=== PATIENT | female | born 1955 | race Caucasian/White ===

== ENCOUNTER → 2025-01-22 12:53 | Outpatient (REF) | payer MEDICARE, OTHER, SELFPAY ==
[2025-01-22 14:16] LABS: % Basophils 0.4 % (0-2); % Eosinophils 1.4 % (0-6); % Immature Granulocytes 0.1 % (0-0.5); % Lymphocytes 35.9 % (20.5-51.1); % Monocytes 7.4 % (1.7-9.3); % Neutrophils 54.8 % (42.2-75.2); Absolute Eosinophils 0.1 10^3/uL (0-0.7); Absolute Lymphocytes 2.8 10^3/uL (1.2-3.4); Absolute Monocytes 0.6 10^3/uL (0.1-0.6); Absolute Neutrophils 4.2 10^3/uL (1.4-6.5); Hematocrit 41.8 % (37.0-47.0); Hemoglobin 13.8 g/dL (12.0-16.0); Mean Corpuscular Hgb 28.2 pg (27.0-31.0); Mean Corpuscular Volume 85.5 fL (81.0-99.0); Mean Platelet Volume 9.4 fL (7.4-10.4); Nucleated Red Blood Cells % 0 %; Platelet Count 304 10^3/uL (130-400); Red Blood Cell Count 4.89 10^6/uL (4.20-5.40); Red Cell Dist. Width 13.4 % (11.5-14.5); White Blood Cell Count 7.7 10^3/uL (4.8-10.8)
[2025-01-22 15:08] LABS: ALT (SGPT) 19 U/L (0-35); AST (SGOT) 23 U/L (14-36); Albumin 4.4 g/dl (3.5-5.0); Alkaline Phosphatase 65 U/L (38-126); Blood Urea Nitrogen 11 mg/dl (7-17); Calcium 10.1 mg/dl (8.4-10.2); Carbon Dioxide 36 mmol/L (22-30); Chloride 96 mmol/L (98-107); Glucose 51 mg/dl (70-99); Potassium 3.9 mmol/L (3.5-5.1); Sodium 139 mmol/L (135-145); Total Bilirubin 0.5 mg/dl (0.2-1.3); Total Protein 7.1 g/dl (6.3-8.2); eGFR > 60.00
== END ==
LOC: SDSPAT 12:53
PROVIDERS: ATTENDING PHYSICIAN Internal Medicine Cardiovascular Disease; FAMILY PHYSICIAN Family Medicine; OTHER PHYSICIAN Internal Medicine Cardiovascular Disease
DX: I25.10 Atherosclerotic heart disease of native coronary artery without angina pectoris (principal); E11.9 Type 2 diabetes mellitus without complications; I73.9 Peripheral vascular disease, unspecified
CPT/HCPCS: 36415; 80053; 85025; 93005

== ENCOUNTER 2025-01-28 06:11 | Day surgery (SDC) | payer MEDICARE, OTHER, SELFPAY ==
[2025-01-22 12:56] VITALS: BMI 26.8
[2025-01-28] VITALS (10 sets, daily range): BP systolic 107–153; BP diastolic 63–81
[2025-01-28 07:16] LABS: Glucose - Point of Care 139 mg/dl (70-99)
[2025-01-28] MEDS: NSS 193 ML IV (07:22)
--- NOTE | 2025-01-28 09:23 | ITS.CL.CATH ---
Caustic Room Attendant - Catheterization
Cardiac Catheterization
Procedure Report:
CARDIAC CATHETERIZATION REPORT
Date of Procedure: 01/28/2025
Referring: Erica Ferrell M.D.
INDICATION: Known coronary artery disease, abnormal stress test after abnormal EKG.
PROCEDURE:
1. Right brachial artery angiography.
2. Left heart catheterization.
3. Coronary angiography.
4. Left ventriculography.
A total of 19 minutes of procedural/moderate sedation was utilized. An independent medical oncologist was present to assist with and help manage the patient's level of consciousness and physiologic status.
ACCESS:
1. 6 Georgian right radial artery using a modified Seldinger technique. Of note, we had difficulty advancing catheters through the right brachial artery. Angiography revealed an 80% stenosis in the mid brachial artery. We were able to traverse
this lesion with a Glidewire and complete the case. Pullback across the lesion revealed a 32 mm peak to peak gradient.
CATHETERS:
1. 5 Georgian JR4.
2. 5 Georgian JL 3.5.
3. 5 Georgian angled pigtail.
4. 5 Georgian multipurpose catheter.
HEMODYNAMIC DATA
Weight (kg): 64.4
AO (s/d/x, mmHg): 174/91/127
LV (s/x mmHg): 174/20
LEFT VENTRICULOGRAPHY: Performed in an ARBOLEDA projection. Normal left ventricular size and preserved systolic function. There is, perhaps, very mild hypokinesis of the apical inferior and apical anterior lr. Left ventricular ejection fraction
estimated at 55-60%. There is no mitral valve regurgitation. There is no aortic valve insufficiency. The aortic root and visualized ascending and descending aorta appear normal with no evidence of residual dissection.
CORONARY ANGIOGRAPHY
Dominance: Right.
Left Main: Normal size, bifurcating vessel. There is no coronary artery disease.
LAD: Normal size vessel giving rise to 2 significant diagonals. There is a 60% lesion in the proximal LAD that spans the origin of the first diagonal. There is a stent present in the mid LAD spanning the origin of the second diagonal. There is
approximately 90% in-stent restenosis in the distal half of the stented segment. There is a 70% lesion in the proximal margin of the large first diagonal which supplies a significant portion of the lateral wall.
Ramus: Congenitally absent.
Circumflex: Large size, nondominant vessel giving rise to 2 obtuse marginals then terminating as a large left posterolateral branch. There is a 60% lesion in the ostium of the circumflex. There is a 70+% lesion in the proximal circumflex
spanning the origin of the first obtuse marginal. There is a 70% lesion in the proximal margin of OM1.
RCA: Normal size, dominant vessel. There is a 90% lesion in the proximal vessel. The vessel is chronically totally occluded in its midsection. The distal vessel is diffusely diseased through the proximal RPDA. The mid and distal RPDA supplied
by collaterals from the LAD.
INTERVENTION(S)
None.
Closure Device: Vascular band.
Radiation (mGy): 311.0
DAP (cm2.Gy): 13.310
Fluoroscopy time (minutes): 5.0
CONCLUSIONS
1. Right dominant circulation with diffuse, multivessel coronary disease including a 90% proximal RCA lesion, a chronic total occlusion of the mid RCA that persists through the distal RCA with reconstitution elicitation of the mid RPDA that is
supplied by collaterals from the LAD, a 60% proximal LAD lesion spanning the origin of the first diagonal, and 90% ISR lesion in the distal half of the mid LAD stent, a 70% lesion in the proximal margin of the first diagonal which supplies a
significant portion of the lateral wall, a 60% lesion in the ostium of the circumflex, a 70% lesion in the proximal circumflex spanning the origin of the first obtuse marginal and a 70% lesion in the proximal margin of OM1.
2. Moderately elevated filling pressures (LVEDP = 20 mmHg at 64.4 kg).
3. Moderate to severe systemic hypertension.
4. 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
5. Impaired anginal warning.
RECOMMENDATIONS:
1. Expectant management after cardiac catheterization via right radial approach.
2. Limited weight bearing on the right wrist for one week.
3. Consultation with CT surgery regarding optimal revascularization strategy.
4. Continue aggressive secondary prevention with pravastatin 10 mg daily (intolerant of higher dose statins). Agree with initiation of inclisiran.
5. Discontinue hydrochlorothiazide in favor of furosemide 20 mg daily.
6. Continue OMT/GDMT as hemodynamics will tolerate.
7. Update echocardiogram.
Copy to: Erica Ferrell M.D., Diana Mei M.D., PhD
Wilner See DO, FACC, FACP
[2025-01-28 09:47] LABS: Glucose - Point of Care 92 mg/dl (70-99)
== END 2025-01-28 12:00 | disposition home or self-care (01) ==
LOC: CATH 06:11
PROVIDERS: ATTENDING PHYSICIAN Internal Medicine Cardiovascular Disease; CONSULT PHYSICIAN Thoracic Surgery (Cardiothoracic Vascular Surgery); FAMILY PHYSICIAN Family Medicine; OTHER PHYSICIAN Internal Medicine Cardiovascular Disease
DX: I25.119 Atherosclerotic heart disease of native coronary artery with unspecified angina pectoris (principal); I25.82 Chronic total occlusion of coronary artery; Z95.5 Presence of coronary angioplasty implant and graft; I10 Essential (primary) hypertension; E78.5 Hyperlipidemia, unspecified; E03.9 Hypothyroidism, unspecified; E11.9 Type 2 diabetes mellitus without complications; K21.9 Gastro-esophageal reflux disease without esophagitis; Z87.891 Personal history of nicotine dependence; Z79.82 Long term (current) use of aspirin; Z79.84 Long term (current) use of oral hypoglycemic drugs; Z79.85 Long-term (current) use of injectable non-insulin antidiabetic drugs; Z79.01 Long term (current) use of anticoagulants
CPT/HCPCS: 99152; C1894; C1769; 82962; 93458

== ENCOUNTER → 2025-02-19 08:00 | Outpatient (REF) | payer MEDICARE, OTHER, SELFPAY ==
[2025-02-19 08:50] VITALS: BMI 27.8
[2025-02-19 09:20] LABS: % Basophils 0.6 % (0-2); % Eosinophils 1.5 % (0-6); % Immature Granulocytes 0.6 % (0-0.5); % Lymphocytes 20.9 % (20.5-51.1); % Monocytes 6.4 % (1.7-9.3); Absolute Basophils 0.1 10^3/uL (0-0.2); Absolute Eosinophils 0.1 10^3/uL (0-0.7); Absolute Immature Granulocytes 0.1 10^3/uL (0-0.05); Absolute Lymphocytes 1.8 10^3/uL (1.2-3.4); Absolute Monocytes 0.5 10^3/uL (0.1-0.6); Absolute Neutrophils 5.9 10^3/uL (1.4-6.5); Hematocrit 42.5 % (37.0-47.0); Mean Corp Hgb Conc. 32.9 g/dL (33.0-37.0); Mean Corpuscular Hgb 28.5 pg (27.0-31.0); Mean Corpuscular Volume 86.4 fL (81.0-99.0); Mean Platelet Volume 9.4 fL (7.4-10.4); Nucleated Red Blood Cells % 0 %; Platelet Count 266 10^3/uL (130-400); Red Blood Cell Count 4.92 10^6/uL (4.20-5.40); Red Cell Dist. Width 13.7 % (11.5-14.5); White Blood Cell Count 8.4 10^3/uL (4.8-10.8)
[2025-02-19 09:44] LABS: INR 0.97; PT 13.3 Sec (11.4-14.6)
[2025-02-19 09:45] LABS: APTT 26.2 Sec (23.4-35.0)
--- NOTE | 2025-02-19 09:47 | CM ---
Chart reviewed. Met with the patient in PAT. Reviewed preoperative and postoperative instructions and restrictions, along with showering guidelines. Gave patient 2 soaps. Patient is agreeable to a home visit by CT Transitional RN. Patient is
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 Patient said she will have friends to help assist when she goes home. Plan is for the
patient to return home with CT Transitional RN. CM to follow
[2025-02-19 09:49] LABS: ALT (SGPT) 21 U/L (0-35); AST (SGOT) 25 U/L (14-36); Albumin 4.8 g/dl (3.5-5.0); Alkaline Phosphatase 68 U/L (38-126); Blood Urea Nitrogen 11 mg/dl (7-17); Calcium 9.8 mg/dl (8.4-10.2); Carbon Dioxide 28 mmol/L (22-30); Chloride 99 mmol/L (98-107); Direct Bilirubin 0.2 mg/dl (0.0-0.4); Estimated Creatinine Clearance 75 ml/min; Glucose 121 mg/dl (70-99); Potassium 4.7 mmol/L (3.5-5.1); Sodium 140 mmol/L (135-145); Total Bilirubin 0.5 mg/dl (0.2-1.3); Total Protein 7.3 g/dl (6.3-8.2); eGFR > 60.00
[2025-02-19 10:23] LABS: Urine Albumin Negative (Neg - Trace); Urine Bilirubin Negative (Negative); Urine Character Clear (Clear); Urine Color Yellow; Urine Glucose Negative (Negative); Urine Ketone Negative (Negative); Urine Leukocyte 2+ (Negative); Urine Nitrite Negative (Negative); Urine Occult Blood Negative (Negative); Urine Urobilinogen Negative (Neg - 1+); Urine pH 6.5 (5.0-9.0)
[2025-02-19 10:54] LABS: Glycohemoglobin (HgbA1c) 6.7 % (4.0-5.6)
[2025-02-19 11:30] LABS: Urine Amorphous Seen
[2025-02-19 11:32] LABS: Urine Red Blood Cell 0-2 /HPF (0-2)
== END ==
LOC: SDSPAT 08:00
PROVIDERS: ATTENDING PHYSICIAN Thoracic Surgery (Cardiothoracic Vascular Surgery); FAMILY PHYSICIAN Family Medicine; OTHER PHYSICIAN Internal Medicine Cardiovascular Disease
DX: Z01.810 Encounter for preprocedural cardiovascular examination (principal); I25.10 Atherosclerotic heart disease of native coronary artery without angina pectoris; Z79.899 Other long term (current) drug therapy; I73.9 Peripheral vascular disease, unspecified; I65.21 Occlusion and stenosis of right carotid artery; I77.1 Stricture of artery
CPT/HCPCS: 94727; 94729; 36415; 71250; 80053; 81003; 81015; 82248; 83036; 85025; 85610; 85730; 86850; 86900; 86901; 87070; 87086; 93005; 93880; 93923; 93930; 93970; 94010

== ENCOUNTER → 2025-02-23 07:01 | Outpatient (REF) | payer MEDICARE, OTHER, SELFPAY | LOC: HWRCS 07:01 | PROVIDERS: ATTENDING PHYSICIAN Thoracic Surgery (Cardiothoracic Vascular Surgery); FAMILY PHYSICIAN Family Medicine | DX: I25.10 Atherosclerotic heart disease of native coronary artery without angina pectoris (principal); Z01.810 Encounter for preprocedural cardiovascular examination | CPT/HCPCS: 93306 ==

== ENCOUNTER 2025-03-02 07:45 | Day surgery (SDC) | payer MEDICARE, OTHER, SELFPAY ==
[2025-03-02] VITALS (15 sets, daily range): BP systolic 113–152; BP diastolic 59–82; BMI 27.7
[2025-03-02 08:34] LABS: Glucose - Point of Care 130 mg/dl (70-99)
[2025-03-02] MEDS: NSS 193 ML IV (08:41)
[2025-03-02] MEDS: LOW STRENGTH ASPIRIN 81 MG PO (09:03)
[2025-03-02 11:23] LABS: ACT-LR - POC 276 Seconds (116-155)
[2025-03-02 12:12] LABS: ACT-LR - POC 376 Seconds (116-155)
[2025-03-02 12:34] LABS: ACT-LR - POC > 397 Seconds (116-155)
[2025-03-02 12:34] LABS: ACT-LR - POC > 397 Seconds (116-155)
--- NOTE | 2025-03-02 12:50 | ITS.CL.ANGIO ---
Switchboard Operator Helper - Angioplasty
Angioplasty
Procedure Report:
CARDIAC CATHETERIZATION REPORT
Date of Procedure: 03/02/2025
Referring: Nima Vieyra M.D.
INDICATION: Multivessel coronary artery disease, no viable surgical conduit.
PROCEDURE:
1. Left-sided coronary angiography.
2. Successful PCI of the proximal OM1, mid circumflex and proximal circumflex using a DK crush technique.
3. Intravascular ultrasound.
A total of 117 minutes of procedural/moderate sedation was utilized. An independent medical grade shoemaker was present to assist with and help manage the patient's level of consciousness and physiologic status.
ACCESS:
1. 7 Senegalese slender right radial artery using a modified Seldinger technique.
CATHETERS:
1. 7 Senegalese EBU 3.5 guiding catheter.
HEMODYNAMIC DATA
Weight (kg): 64.4
AO (s/d/x, mmHg): 151/71/99
LV (s/x mmHg): Not obtained.
LEFT VENTRICULOGRAPHY: Not performed.
CORONARY ANGIOGRAPHY
Dominance: Right.
Left Main: Normal size, bifurcating vessel. There is no coronary artery disease.
LAD: Normal size vessel giving rise to 2 significant diagonals. There is a 60% lesion in the proximal LAD that spans the origin of the first diagonal. There is a stent present in the mid LAD spanning the origin of the second diagonal. There is
approximately 90% in-stent restenosis in the distal half of the stented segment. There is a 70% lesion in the proximal margin of the large first diagonal which supplies a significant portion of the lateral wall.
Ramus: Congenitally absent.
Circumflex: Large size, nondominant vessel giving rise to 2 obtuse marginals then terminating as a large left posterolateral branch. There is a Oneil 1, 1, 1 lesion in the proximal/mid circumflex and OM1 (70% lesion in the ostium of the
circumflex, an 80% lesion in the mid circumflex spanning the origin of the first obtuse marginal and a 70% lesion in the proximal margin of OM1).
RCA: Not injected. Known to be a normal size, dominant vessel with a 90% lesion in his proximal margin and chronic total occlusion of its midsection supplied by collaterals from the LAD.
INTERVENTION(S)
1. Successful PCI of the Oneil 1, 1, 1 circumflex/OM lesion using a DK crush technique ([employer] [place] 2.0 x 22 VIOLA into the OM1, 3.0 x 38 VIOLA in the proximal and mid circumflex, status post simultaneous kissing balloon and POT) with
reduction in all circumflex stenoses to 0%, maintaining ZEINA-3 flow.
2. Intravascular ultrasound of the left circumflex artery.
Narrative:
After thorough and thoughtful discussion with CT surgery and review of the fact that the patient has multivessel coronary disease with no usable conduit, the decision was made to proceed with percutaneous coronary intervention. A 7Fr EBU 3.5 guiding
catheter was advanced to the aortic root and seated in the left main coronary artery. Additional heparin was given and a Power Turn Flex wire was advanced into the distal aspect of obtuse marginal 1. A BMW wire was advanced into the left
posterolateral branch. The 70% proximal OM1 lesion was predilated with a 2.0 x 12 semi-compliant balloon to 12 omayra. This semicompliant balloon was used to predilate the entire proximal circumflex artery to 12 omayra. The semicompliant balloon was
withdrawn from the power turn Flex wire and readvanced over the BMW wire. Angioplasty was performed on the mid circumflex and again in the proximal circumflex to 12 omayra.
The semicompliant balloon was withdrawn and a 2.5 x 12 semicompliant balloon was advanced and parked in the more distal circumflex, beyond the origin of OM1. A Medtronic [place] [facility] 2.0 x 22 drug-eluting stent was advanced over the power turn
flex wire and into the first obtuse marginal. Meticulous care was taken while positioning the stent, ensuring that the distal aspect of the stent covered the entire proximal lesion while the proximal aspect of the stent protruded into the left
circumflex far enough for instrumentation. When we were satisfied with our position, the stent was deployed to 12 omayra. The stent balloon was withdrawn. The 2.5 x 12 semicompliant balloon was pulled back and the circumflex portion of the stent was
crushed by inflation of this balloon.
A whisper wire was advanced through the guide and into the left circumflex artery. The whisper wire was able to traverse the crushed stent struts and entered the first obtuse marginal artery. A 1.5 x 6 mm semicompliant balloon was advanced over
the whisper wire and into the OM1. The balloon was positioned at the ostium of OM1 and the crushed stent struts were dilated to 12 omayra. The semicompliant balloon was removed and then the 2.0 x 12 semicompliant balloon was advanced. Once again,
the ostium of OM1 was dilated to 12 omayra. At this time, the power turn Flex wire was removed from the obtuse marginal and thus from in between the crush to stent segments. The semicompliant balloon was withdrawn and a 2.0 x 12 noncompliant balloon
was advanced. The entire OM stented segment was postdilated to 12 omayra, including across the stent struts and into the left circumflex. The 2.5 x 12 semicompliant circumflex balloon was pulled back and a simultaneous kissing inflation of the
balloons was performed to 12 omayra. Both balloons were withdrawn.
The decision was made to perform intracoronary imaging. An IVUS catheter was advanced through the guiding catheter and into the ostium of the artery. Ring down was performed once the imaging crystal was no longer inside of the guiding catheter. The
IVUS catheter was advanced into the proximal left main, but would not pass beyond the lip of the crushed OM stent. The IVUS catheter was withdrawn. The power turn flex wire was readvanced into the LAD to serve as a marker and as protection.
A Medtronic [place] [facility] 3.0 x 38 drug-eluting stent was advanced. Meticulous care was taken while positioning the stent, ensuring that the distal aspect of the stent cover the entirety of the atherosclerotic portion while ensuring that the
proximal margin of the stent did not intrude into the left main coronary artery while also completely treating the proximal circumflex lesion. When we were satisfied with our position, the whisper wire was removed from the obtuse marginal to avoid
pinning and the stent was deployed at 12 atmospheres. The stent balloon was removed. A 3.0 x 15 noncompliant balloon was advanced into the circumflex stent and the stent was postdilated to 15 atmospheres.
The whisper wire was readvanced into the circumflex with a view to reaccessing and post dilating the stent struts leading into the first obtuse marginal. Unfortunately, the whisper wire would not enter the obtuse marginal artery. The whisper was
withdrawn and a Fielder XT was advanced. The Fielder XT had improved success entering the obtuse marginal but required microcatheter support. The power turn flex was withdrawn from the LAD as it no longer needed protection. The quick cross
microcatheter was removed over the Fielder XT and a 1.2 x 8 [id number] balloon was advanced over the Fielder XT. Unfortunately, this balloon would not enter the obtuse marginal, even when supported by a 6 Senegalese GuideLiner. In spite of multiple
attempts, access was ultimately lost on the obtuse marginal, at which time the Fielder XT and the [id number]-[id number]-acti balloon were removed.
IVUS was reattempted over the BMW wire, this time passing into the distal circumflex with relative ease. IVUS was performed in a retrograde fashion demonstrating good stent apposition throughout the entire stented segment with underexpansion of the
stent near the bifurcation with OM1. The IVUS catheter was withdrawn and a 3.25 x 12 noncompliant balloon was advanced. The distal circumflex stent was dilated to 16 omayra. The remainder of the stented segment, including the section spanning the
origin of OM1 and the proximal margin was postdilated to 20 omayra. The noncompliant balloon was withdrawn and IVUS was repeated, showing a dramatic improvement in the underexpanded circumflex stent segment.
The IVUS catheter was withdrawn. At this point, we felt that the procedure may be had an and given our previous inability to advance equipment through the stent struts and into OM1. While pulling the BMW wire back, I did decide to reattempt
entering the OM1, which was now accomplished using the BMW wire with relative ease. The 1.5 x 6 semicompliant balloon was advanced over the BMW wire and the circumflex stent struts covering the obtuse marginal were predilated to 16 omayra. The 1.5
balloon was removed and the original 2.0 x 12 semicompliant balloon was advanced. The stent struts and ostial OM1 were dilated to 12 omayra. The semicompliant balloon was removed and the power turn flex was readvanced into the distal circumflex. A
fresh 2.0 x 8 noncompliant balloon was advanced over the BMW wire and into the first obtuse marginal. The 3.25 x 12 noncompliant balloon was advanced over the power turn flex and into the AV groove circumflex. The proximal OM stent was dilated to
14 omayra. The balloon was pulled back, spanning the origin of the OM and dilated again to 14 omayra. The 3.25 NC balloon was pulled back until it was even with the OM1 balloon. The 3.25 x 12 NC balloon was inflated to 12 omayra. At that time, both
balloons were simultaneously inflated to 14 omayra and a simultaneous kissing balloon technique. Both balloons were deflated and withdrawn. IVUS was initially reattempted, but had difficulty traversing the turn within the stent. Given the favorable
angiographic status, we elected to defer further IVUS due to fear of disruption of the neocarina.
Angiography was performed in orthogonal views, confirming good stent expansion and an excellent angiographic result. The coronary wires were withdrawn and the guide was disengaged from the artery. The catheter was removed over a standard J-wire.
Closure Device: Vascular band.
Radiation (mGy): 1036.39
DAP (cm2.Gy): 51.4887
Fluoroscopy time (minutes): 37.8
CONCLUSIONS
1. Right dominant circulation with a chronic total occlusion of the RCA with, 60% lesion in the proximal LAD spanning the origin of the first diagonal, a stent in the mid LAD with 90% in-stent restenosis, a 70% lesion in the proximal margin of D1
and a complex, Oneil 1, 1, 1 lesion of the proximal/mid circumflex and OM1 (70% lesion in the ostium of the circumflex, an 80% lesion in the mid circumflex spanning the origin of the first obtuse marginal and a 70% lesion in the proximal margin of
OM1) status post successful IVUS guided PCI using a DK crush technique (Medtronic [place] 2.0 x 22 VIOLA into OM1, 3.0 x 38 VIOLA in the proximal and mid circumflex status post simultaneous kissing balloon with a 2.0 NC balloon in OM1 and a 3.25
NC balloon in the proximal/mid circumflex and POT) with reduction in the circumflex/OM stenoses to 0%, maintaining ZEINA-3 flow.
RECOMMENDATIONS:
1. Expectant management after cardiac catheterization via right radial approach.
2. Limited weight bearing on the right wrist for one week.
3. Combination antiplatelet therapy with aspirin, clopidogrel and low-dose rivaroxaban for at least 12 months.
4. Anticipate staged PCI of the LAD in the next 2 to 3 weeks.
5. Aggressive secondary prevention with maximum tolerated antilipid therapy. Goal LDL <55.
6. Continue GLP-1 agonist.
7. OMT/GDMT as hemodynamics will tolerate.
8. Refer to cardiac rehab.
Copy to: Nima Vieyra M.D., Erica Ferrell M.D.
Wilner See DO, FACC, FACP
[2025-03-02 13:05] LABS: ACT-LR - POC 313 Seconds (116-155)
[2025-03-02 13:12] LABS: Glucose - Point of Care 79 mg/dl (70-99)
--- NOTE | 2025-03-02 16:03 | PTCARENOTE ---
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 Tele- SR. R radial band off and gauze and Tegaderm applied; c/d/i. No bleeding/hematoma noted. Oriented pt to room. VSS. Plan of care reviewed w/ pt and verbalizes understanding. Currently OOB in chair; call marlene w/in reach.
[2025-03-02 17:30] LABS: Glucose - Point of Care 154 mg/dl (70-99)
[2025-03-02] MEDS: PRAVACHOL 10 MG PO (17:47)
[2025-03-02] MEDS: AMARYL 4 MG PO (17:47)
[2025-03-02] MEDS: NOVOLOG FLEXPEN-MODERATE RESISTANCE 1 UNITS SC (18:07)
[2025-03-02] MEDS: LOPRESSOR 50 MG PO (20:38)
[2025-03-02] MEDS: XARELTO 2.5 MG PO (20:38)
[2025-03-02] MEDS: TYLENOL 650 MG PO (20:39)
[2025-03-02] MEDS: ASPIR LOW (ENTERIC COATED) 81 MG PO (21:44)
[2025-03-02 21:47] LABS: Glucose - Point of Care 107 mg/dl (70-99)
--- NOTE | 2025-03-02 22:14 | PTCARENOTE ---
Rec'd at change of shift. SR on monitor. Pt with R radial site CDI. Pt resting with call rosario in reach and plan of care ongoing. See MAR and flowchart for full pt care and assessment.
[2025-03-03 02:53] VITALS: BP 120/54
[2025-03-03 02:54] VITALS: BP 120/54
[2025-03-03 03:11] VITALS: BMI 27.8
[2025-03-03 03:41] LABS: Hematocrit 36.4 % (37.0-47.0); Hemoglobin 12.5 g/dL (12.0-16.0); Mean Corp Hgb Conc. 34.3 g/dL (33.0-37.0); Mean Corpuscular Hgb 29.5 pg (27.0-31.0); Mean Corpuscular Volume 85.8 fL (81.0-99.0); Mean Platelet Volume 9.4 fL (7.4-10.4); Platelet Count 206 10^3/uL (130-400); Red Blood Cell Count 4.24 10^6/uL (4.20-5.40); Red Cell Dist. Width 13.4 % (11.5-14.5); White Blood Cell Count 8.3 10^3/uL (4.8-10.8)
[2025-03-03 03:59] LABS: Blood Urea Nitrogen 11 mg/dl (7-17); Calcium 9.1 mg/dl (8.4-10.2); Carbon Dioxide 27 mmol/L (22-30); Chloride 105 mmol/L (98-107); Estimated Creatinine Clearance 75 ml/min; Glucose 118 mg/dl (70-99); HDL Cholesterol 47 mg/dl; LDL Cholesterol, Calculated 74 mg/dl; Potassium 4.1 mmol/L (3.5-5.1); Sodium 140 mmol/L (135-145); Total Cholesterol 157 mg/dl (50-199); Triglyceride 180 mg/dl (10-149); Very Low Density Lipoprotein 36 mg/dl (0-30); eGFR > 60.00
[2025-03-03 04:47] LABS: Hepatitis C Antibody Negative (Negative)
[2025-03-03] MEDS: SYNTHROID 100 MCG PO (05:47)
[2025-03-03 07:06] VITALS: BP 96/62
[2025-03-03 07:15] LABS: Glucose - Point of Care 147 mg/dl (70-99)
--- NOTE | 2025-03-03 07:57 | W.PN.CD ---
Today's Communication / Plan
-
Discharge.
Staged PCI of the LAD in 2-3 weeks.
Maintain aspirin/clopidogrel/rivaroxaban.
Impression / Plan
-
Impression/Plan: 69 y/o female with HTN, HLD, relative statin intolerance, PAD requiring RLE bypass and CAD with impaired anginal warning initially referred for CABG after cath showed LAD ISR, RCA ASSEMBLER CAMPER and LCx disease, but redirected to multivessel
PCI after US evaluation showed she has no usable bypass conduit, now admitted for observation after staged PCI of the LCx/OM1.
#CAD
-Chronic, progressive.
-Cardiac catheterization from 01/28/2025 show mRCA ASSEMBLER CAMPER, 60% pLAD, 90% mLAD ISR, 70% pD1, 60+% pLCx, 70-80% mLCx spanning OM1 and 70% pOM1.
-Patient was initially referred for CABG, but evaluation showed that there was no usable conduit for bypass, including questionable SAMSON. She was subsequently re-referred for PCI.
-S/P successful IVUS guided PCI of the Oneil 1,1,1 pLCx/mLCx/OM1 lesion using a DK crush technique (Medtronic [place] 2.0 x 22 VIOLA from LCx into OM1, 3.0 x 38 VIOLA in pLCx/mLCx main vessel with simultaneous kissing balloons (2.0 x 8 NCB and 3.25 x 12
NCB).
-Antithrombotic therapy with aspirin, clopidogrel and low dose rivaroxaban.
-Plan for staged PCI of the LAD in 2-3 weeks.
#Right hand ecchymosis
-Acute, asymptomatic.
-Likely from combination of antithrombotic medications and pressure on hand during procedure.
-Conservative management.
#Dispo
-Discharge.
Subjective/Interval History:
Successful bifurcation PCI of the LCx/OM1 Oneil 1,1,1 lesion.
DATA:
Cardiac Catheterization/PCI, 03/02/2025:
CONCLUSIONS
1. Right dominant circulation with a chronic total occlusion of the RCA with, 60% lesion in the proximal LAD spanning the origin of the first diagonal, a stent in the mid LAD with 90% in-stent restenosis, a 70% lesion in the proximal margin of D1
and a complex, Oneil 1, 1, 1 lesion of the proximal/mid circumflex and OM1 (70% lesion in the ostium of the circumflex, an 80% lesion in the mid circumflex spanning the origin of the first obtuse marginal and a 70% lesion in the proximal margin of
OM1) status post successful IVUS guided PCI using a DK crush technique (Medtronic [place] frontier 2.0 x 22 VIOLA into OM1, 3.0 x 38 VIOLA in the proximal and mid circumflex status post simultaneous kissing balloon with a 2.0 NC balloon in OM1 and a 3.25
NC balloon in the proximal/mid circumflex and POT) with reduction in the circumflex/OM stenoses to 0%, maintaining ZEINA-3 flow.
Physical Exam
Vital Signs/Labs
Vital Signs
Temp Pulse Resp BP Pulse Ox
37.0 C 68 20 96/62 97
03/03/25 07:06 03/03/25 07:06 03/03/25 07:06 03/03/25 07:06 03/03/25 07:06
03/01/25 03/02/25 03/03/25
11:59 11:59 11:59
Actual Weight 64.41 kg 64.6 kg
03/03/25 03:09
03/03/25 03:09
Triglycerides 180 mg/dl (10-149) H 03/03/25 03:09
LDL Cholesterol, Calc 74 mg/dl 03/03/25 03:09
VLDL Cholesterol, Calc 36 mg/dl (0-30) H 03/03/25 03:09
HDL Cholesterol 47 mg/dl 03/03/25 03:09
Physical Exam
Constitutional: No acute distress and Comfortable
EENT: Anicteric and Moist mucous membranes
Cardiovascular: Rhythm & rate is regular, Pedal edema is absent, JVD pressure is normal, S1S2 is normal and Murmur/rub/gallop absent
Respiratory: Respiratory effort normal, Lungs clear to auscul., Wheeze Absent, Crackles Absent and Rhonchi Absent
GI: Soft, Distention absent, Flat, Non tender and Normal bowel sounds
Neuro/Psych: AO x 3
Other: Cath Site (Right radial artery access site is C/D/I. The dorsal right hand is ecchymotic.)
Data Reviewed
-
Date of Service: March 03, 2025
Medical Decision Making: Reviewed Test Results, Independent Historian Assessment and Test Interpretation
EKG: Tracing Personally Visualized and interpreted and Report Reviewed by me
Medical Tests (PFT, Pathology etc): Image Personally Visualized and interpreted, Report Reviewed by me, Discussed with Physician, Discussed with Patient and Discussed with Family
Labs: Labs Reviewed by me
Old Records: Reviewed
[2025-03-03] MEDS: NOVOLOG FLEXPEN-MODERATE RESISTANCE SC (08:50)
[2025-03-03] MEDS: AMARYL 4 MG PO (08:51)
[2025-03-03] MEDS: LASIX 20 MG PO (08:51)
[2025-03-03] MEDS: XARELTO 2.5 MG PO (08:51)
[2025-03-03] MEDS: PEPCID 20 MG PO (08:51)
[2025-03-03] MEDS: PLAVIX 75 MG PO (08:51)
[2025-03-03 08:52] VITALS: BP 100/49
--- NOTE | 2025-03-03 09:37 | CM ---
Reviewed chart. Met with Miss Jenkins to review discharge plans. She states prior to admission she resides with her brother in a two story home with eight steps to enter. She states she has a full flight of steps to get to bedroom/full bathroom.
She states she does not have a bathroom onthe first floor. She states prior to admission she was independent with ambulation and adls. She states she does not have any DME in the home. She states she has a prescription plan and uses [facility].
The discharge plan is to return home with her brother when medically stable.
[2025-03-03] MEDS: LOPRESSOR PO (09:55)
[2025-03-03] MEDS: TYLENOL 650 MG PO (10:12)
== END 2025-03-03 10:57 | disposition home or self-care (01) ==
LOC: CATH 07:45
PROVIDERS: Nurse Practitioner; ATTENDING PHYSICIAN Internal Medicine Cardiovascular Disease; FAMILY PHYSICIAN Family Medicine; OTHER PHYSICIAN Internal Medicine Cardiovascular Disease
DX: I25.119 Atherosclerotic heart disease of native coronary artery with unspecified angina pectoris (principal); E11.51 Type 2 diabetes mellitus with diabetic peripheral angiopathy without gangrene; I65.21 Occlusion and stenosis of right carotid artery; I10 Essential (primary) hypertension; E78.5 Hyperlipidemia, unspecified; E03.9 Hypothyroidism, unspecified; K21.9 Gastro-esophageal reflux disease without esophagitis; Z72.0 Tobacco use; I25.82 Chronic total occlusion of coronary artery; S60.221A Contusion of right hand, initial encounter; T82.855A Stenosis of coronary artery stent, initial encounter; Y83.9 Surgical procedure, unspecified as the cause of abnormal reaction of the patient, or of later complication, without mention of misadventure at the time of the procedure; I49.8 Other specified cardiac arrhythmias; Z79.02 Long term (current) use of antithrombotics/antiplatelets; Z79.82 Long term (current) use of aspirin
CPT/HCPCS: 92978; 99152; 99153; 80048; 80061; 82962; 85027; 85347; 86803; 93005; C1725; C1753; C1769; C1874; C1894; C9600; C9601; Q9967

== ENCOUNTER 2025-03-16 08:54 | Day surgery (SDC) | payer MEDICARE, OTHER, SELFPAY ==
[2025-03-12 12:59] VITALS: BMI 28.6
[2025-03-16] VITALS (10 sets, daily range): BP systolic 109–152; BP diastolic 49–95; BMI 27.7
[2025-03-16 09:35] LABS: Glucose - Point of Care 179 mg/dl (70-99)
[2025-03-16] MEDS: NSS 202 ML IV (10:22)
--- NOTE | 2025-03-16 13:17 | ITS.CL.ANGIO ---
Order Processing Clerk - Angioplasty
Angioplasty
Procedure Report:
CARDIAC CATHETERIZATION REPORT
Date of Procedure: 03/16/2025
Referring: Erica Ferrell M.D.
INDICATION: Staged PCI.
PROCEDURE:
1. Left-sided coronary angiography.
2. PTCA of the mid and distal LAD.
3. Successful shockwave intracoronary lithotripsy of the proximal/mid LAD.
4. Successful PCI of the distal LAD.
5. Successful PCI of the proximal/mid LAD.
6. Intravascular ultrasound.
A total of 91 minutes of procedural/moderate sedation was utilized. An independent medical office supervisor was present to assist with and help manage the patient's level of consciousness and physiologic status.
ACCESS:
1. 7 [place] slender right radial artery using a modified Seldinger technique.
CATHETERS:
1. 7 [place] EBU 3.5 guiding catheter.
HEMODYNAMIC DATA
Weight (kg): 67.1
AO (s/d/x, mmHg): 154/63/97
LV (s/x mmHg): Not obtained.
LEFT VENTRICULOGRAPHY: Not performed.
CORONARY ANGIOGRAPHY
Dominance: Right.
Left Main: Normal size, bifurcating vessel. There is no coronary artery disease.
LAD: Normal size vessel giving rise to 2 significant diagonals. There is a lesion in the proximal LAD into the mid LAD that spans the origin of the first diagonal. Initially, this appears to be approximately 60% but is angiographically
underappreciated and is likely closer to 80-90%. There is a stent present in the mid LAD spanning the origin of the second diagonal. There is 95% in-stent restenosis in the distal half of the stented segment. There is a 70% lesion in the proximal
margin of the first diagonal which supplies a significant portion of the lateral wall.
Ramus: Congenitally absent.
Circumflex: Large size, nondominant vessel giving rise to 2 obtuse marginals before terminating is a large posterolateral branch. There is a patent bifurcation stent in the AV groove circumflex as well as OM1 with no evidence of in-stent
restenosis.
RCA: Not injected. Known to be a normal size, dominant vessel with a 90% lesion in its proximal margin and a chronic total occlusion of its midsection, supplied by collaterals from the LAD.
INTERVENTION(S)
1. Successful PTCA of the mid and distal LAD including the 95% in-stent restenosis lesion in the distal margin of the mid LAD stent (1.5 x 15 semicompliant balloon, 2.0 x 12 semicompliant balloon).
2. Successful preventative PTCA of the ostium of D2 in anticipation of a second layer of stent (1.5 x 15 semicompliant balloon).
3. Successful intracoronary lithotripsy of the underappreciated, densely calcified 80-90% proximal/mid LAD lesion spanning the origin of D1 (Shockwave 3.0 x 12 lithotripsy balloon).
4. Successful PCI of the mid/distal LAD 90% ISR lesion ([employer]onic [place] 2.0 x 26 VIOLA, postdilated with a 2.0 NC balloon throughout) with reduction in stenosis to 0%, maintaining ZEINA-3 flow.
5. Successful PCI of the densely calcified 80-90% proximal/mid LAD lesion spanning the origin of D1 (Medtronic [place] 2.5 x 26 VIOLA, overlapping with the distal 2.0 x 26 VIOLA, postdilated with a 2.5 NC balloon throughout) with reduction in
stenosis to 0%, maintaining ZEINA-3 flow.
6. Intravascular ultrasound of the entire LAD and left main coronary artery.
7. Aggressive post dilation of the mid/distal LAD stent (2.25 NC balloon throughout, followed by a 2.75 NC balloon in the proximal margin including the overlap) and the proximal/mid LAD stent (2.75 NC balloon throughout, 3.0 x 12 NC balloon in the
proximal margin) with excellent balloon expansion, maintaining ZEINA-3 flow in all vessels including the jailed diagonals.
Narrative:
The decision was made to proceed with percutaneous coronary intervention. The 7Fr EBU 3.5 guiding catheter was advanced to the aortic root and seated in the left main coronary artery. Additional heparin was given and a Power Turn Flex wire was
advanced into the mid LAD and then into the second diagonal. A BMW wire was advanced into the mid LAD but had difficulty crossing the 95% ISR lesion. A quick cross microcatheter was advanced using a wire pinning technique over the BMW and into the
mid LAD. Of note, the quick cross microcatheter had difficulty crossing the proximal/mid LAD lesion, our first clue that this lesion was angiographically underappreciated. With quick cross support, the BMW wire was advanced into the distal LAD.
The 95% mid/distal lesion LAD ISR lesion was predilated with a 1.5 x 15 semi-compliant balloon to 12 omayra after a 2.0 x 12 semicompliant balloon would not advance. The entire stented segment was predilated with the 1.5 semicompliant balloon up to 16
omayra. The 1.5 semicompliant balloon was withdrawn and the 2.0 x 12 semicompliant balloon was readvanced. Once again, the entire stented segment including slightly distal to the stented segment was predilated to 12 omayra. The semicompliant balloon
was removed. Angiography showed a significant improvement in the ISR lesion. The second diagonal artery was a notable artery though not incredibly large. Given the fact that this artery was about to be jailed with a second layer stent, we did
take the opportunity to perform angioplasty through the stent struts of the first stent in an attempt to save the artery from unfavorable plaque shift and closure. The 1.5 x 15 semicompliant balloon was advanced over the power turn flex artery and
the ostium of the artery/stent struts were dilated to 12 omayar. The semicompliant balloon was withdrawn.
A Medtronic [place] 2.0 x 26 drug-eluting stent was advanced. Unfortunately, the stent would not pass beyond the proximal LAD lesion. The power turn flex wire was pulled back from the second diagonal and redirected into the first diagonal to
avoid jailing with the second stent layer. A guide liner was advanced to assist with advancement of the stent, but the stent still refused to cross the lesion. The stent was withdrawn.
The decision was made to proceed with intracoronary plaque modification. A Shockwave 3.0 x 12 coronary lithotripsy balloon was advanced over the wire and into the proximal/mid LAD lesion. The balloon was sterilely connected to the controller and
prepped to negative pressure. Meticulous care was taken while positioning the shockwave balloon. Once in satisfactory position, the balloon was inflated to 4 omayra. After confirming good contact with the vessel wall, 10 pulses were delivered.
After delivering 10 pulses, the balloon was inflated to 6 omayra then deflated. The entire lesion was treated in a similar manner for total of 3 rounds with good balloon expansion.
The Shockwave balloon was withdrawn. The 2.0 x 12 semicompliant balloon was readvanced, this time passing throughout the proximal mid LAD with relative ease in spite of its previous use. The mid LAD was dilated to 16 omayra which allowed the
GuideLiner to advance and sheath the balloon on deflation. With the GuideLiner advanced over the balloon, the balloon was withdrawn and the stent was readvanced, this time passing into the LAD with relative ease. Meticulous care was taken while
positioning the stent, ensuring that the distal edge of the stent was in contact with angiographically normal artery. The stent was deployed at 12 atmospheres. The proximal edge of the stent was within the previously stented segment. The stent
balloon was removed.
We then attempted to advance a Medtronic [place] 3.0 x 38 drug-eluting stent for the more proximal section. Unfortunately, this stent would not advance in spite of numerous interventions including readvancement of the GuideLiner. This stent
was withdrawn. A 2.5 x 12 noncompliant balloon was advanced into the mid LAD. The mid and proximal margin of the new stent was postdilated to 12 omayra. The previous stent that was not covered by the new stent was postdilated to 16 omayra. We took
this opportunity to perform angiography with the NC balloon in the mid LAD, allowing assessment of stent length need. The noncompliant balloon was withdrawn after advancing the GuideLiner over it and a Medtronic [place] 2.5 x 26 drug-eluting
stent was advanced. The GuideLiner was pulled back and the stent was positioned. Meticulous care was taken while positioning the stent, ensuring that the entire lesion was covered and there was overlap of the mid/distal LAD stent with this second
stent. When we were satisfied with our position, the stent was deployed at 12 omayra. The stent balloon was withdrawn.
A previously used 2.5 x 12 noncompliant balloon was advanced into the stent and the stent was postdilated to 12 atmospheres in its distal margin at the overlap, 14 omayra in its midportion and 16 omayra in its proximal section.
The noncompliant balloon was withdrawn. The decision was made to perform intracoronary imaging. An IVUS catheter was advanced through the guiding catheter and into the ostium of the artery. Ring down was performed once the imaging crystal was no
longer inside of the guiding catheter. The IVUS catheter was advanced into the distal LAD. Intravascular ultrasound was performed in a retrograde fashion using a slow pullback. Intracoronary imaging demonstrated diffuse atherosclerotic disease with
good stent apposition and minor areas of underexpansion throughout the distal and mid LAD. Vessel measurements were taken in the proximal LAD by visual assessment.
The IVUS catheter was withdrawn and a 2.75 x 15 NC balloon was advanced. The stent overlap in all stent proximal to the overlap were postdilated to 12-16 omayra. The 2.75 x 15 NC balloon was withdrawn. A 3.0 x 12 NC balloon was advanced. The
balloon was seated in the proximal margin of the proximal LAD stent. This area was postdilated to 14 omayra. This noncompliant balloon was withdrawn. A 2.25 x 12 noncompliant balloon was advanced into the distal vessel. The distal stent,
approximately 2 mm from the stent edge was postdilated to 16 omayra. The noncompliant balloon was removed and nitroglycerin 100 mcg was given intracoronary.
Angiography was performed in orthogonal views, confirming good stent expansion and an excellent angiographic result. The coronary wire was withdrawn and the guide was disengaged from the artery. The catheter was removed over a standard J-wire.
Closure Device: Vascular band.
Radiation (mGy): 775.13
DAP (cm2.Gy): 45.6799
Fluoroscopy time (minutes): 25.5
CONCLUSIONS
1. Right dominant circulation with a 95% lesion in the proximal RCA followed by ASSOCIATE PASTOR of the mid section, prior bifurcation PCI of the LCx/OM1, a 70% lesion in the proximal margin of the first diagonal, a 95% mid/distal LAD ISR lesion status post
successful IVUS guided PCI (Medtronic [place] 2.0 x 26 VIOLA, postdilated with a 2.0 NC balloon, followed by a 2.25 NC balloon throughout and a 2.75 NC balloon in his proximal margin) and an angiographically underappreciated, densely calcified,
80-90% proximal/mid LAD lesion spanning the origin of D1 status post successful intracoronary lithotripsy (Shockwave 3.0 x 12 lithotripsy balloon) and IVUS guided PCI (Med[employer]onic [place] 2.5 x 26 VIOLA that overlapped with the mid/distal LAD
stent, postdilated with a 2.5 NC balloon throughout, a 2.75 NC balloon throughout and a 3.0 x 12 NC balloon in its proximal margin) with reduction in all LAD stenoses to 0%, maintaining ZEINA-3 flow in the LAD and in D1/D2.
RECOMMENDATIONS:
1. Expectant management after cardiac catheterization via right radial approach.
2. Limited weight bearing on the right wrist for one week.
3. Antithrombotic therapy with clopidogrel and low-dose rivaroxaban ad infinitum.
4. Continue aggressive secondary prevention with high-dose, high potency statin as she will tolerate.
5. Continue aggressive OMT/GDMT as hemodynamics will allow.
6. Referral to cardiac rehab.
7. Monitor overnight given complexity of intervention.
Copy to: Erica Ferrell M.D., Nima Vieyra M.D.
Wilner See DO, FACC, FACP
[2025-03-16] MEDS: NOVOLOG FLEXPEN-MODERATE RESISTANCE SC (15:22)
[2025-03-16 15:23] LABS: Glucose - Point of Care 129 mg/dl (70-99)
[2025-03-16] MEDS: AMARYL 4 MG PO (16:06)
[2025-03-16 17:09] LABS: Glucose - Point of Care 242 mg/dl (70-99)
[2025-03-16] MEDS: NOVOLOG FLEXPEN-MODERATE RESISTANCE 3 UNITS SC (18:05)
--- NOTE | 2025-03-16 19:19 | PTCARENOTE ---
~1330: Received patient from [facility]. R radial TR band in place. patient AOx4, NSr 1st degree AVB 70s on tele, SBP 130s-140s. Upon arrival, patient pleth showing 70% on 3L on R hand, 2cc air let out by CCL nurse, pleth then showed 91%. R radial site CDI
with no oozing or hematoma at this time. Pt denies CP at this time. Paitent oriented to room and call rosario system and limg precautions. EKG obtained per protocol. All needs met, call rosario within reach.
~1430: Admission questions completed. O2 weaned to 2L NC.
~1630: O2 titrated to RA. TR band off at 1630, site soft with no bruising or hematoma noted, dressing applied.
~1000-8181: Patient standby assist/ independent in room. OOB to chair. AOx4, VSS. R radial site CDI and soft at this time. Pt denies pain. All needs met at this time, call rosario within reach. Handoff report given to nightshift RN.
[2025-03-16] MEDS: LOPRESSOR 50 MG PO (20:49)
[2025-03-16] MEDS: XARELTO 2.5 MG PO (20:49)
[2025-03-16] MEDS: PRAVACHOL 10 MG PO (22:22)
[2025-03-16 22:26] LABS: Glucose - Point of Care 203 mg/dl (70-99)
--- NOTE | 2025-03-16 22:35 | PTCARENOTE ---
Received patient at change of shift. SR on the monitor, HR in the 60s. R radial dressing CDI. Educated pt on activity restrictions, pt verbalizes understanding. No complaints from pt at this time, call rosario within reach.
[2025-03-17 03:57] VITALS: BP 117/40
[2025-03-17 04:18] LABS: Hematocrit 33.8 % (37.0-47.0); Hemoglobin 11.1 g/dL (12.0-16.0); Mean Corp Hgb Conc. 32.8 g/dL (33.0-37.0); Mean Corpuscular Hgb 28.4 pg (27.0-31.0); Mean Corpuscular Volume 86.4 fL (81.0-99.0); Mean Platelet Volume 9.9 fL (7.4-10.4); Platelet Count 231 10^3/uL (130-400); Red Blood Cell Count 3.91 10^6/uL (4.20-5.40); Red Cell Dist. Width 13.3 % (11.5-14.5); White Blood Cell Count 7.9 10^3/uL (4.8-10.8)
[2025-03-17 04:47] LABS: Blood Urea Nitrogen 13 mg/dl (7-17); Calcium 8.8 mg/dl (8.4-10.2); Carbon Dioxide 24 mmol/L (22-30); Chloride 108 mmol/L (98-107); Estimated Creatinine Clearance 75 ml/min; Glucose 178 mg/dl (70-99); HDL Cholesterol 46 mg/dl; LDL Cholesterol, Calculated 99 mg/dl; Potassium 4.4 mmol/L (3.5-5.1); Sodium 138 mmol/L (135-145); Total Cholesterol 176 mg/dl (50-199); Triglyceride 159 mg/dl (10-149); Very Low Density Lipoprotein 31 mg/dl (0-30); eGFR > 60.00
[2025-03-17] MEDS: SYNTHROID 100 MCG PO (06:44)
[2025-03-17 07:18] VITALS: BP 115/41
[2025-03-17 07:23] LABS: Glucose - Point of Care 158 mg/dl (70-99)
[2025-03-17] MEDS: PLAVIX 75 MG PO (07:59)
[2025-03-17] MEDS: LASIX 20 MG PO (07:59)
[2025-03-17] MEDS: ASPIR LOW (ENTERIC COATED) 81 MG PO (07:59)
[2025-03-17] MEDS: AMARYL 4 MG PO (07:59)
[2025-03-17] MEDS: XARELTO 2.5 MG PO (07:59)
[2025-03-17] MEDS: PROTONIX 40 MG PO (07:59)
[2025-03-17] MEDS: LOPRESSOR 50 MG PO (07:59)
[2025-03-17] MEDS: NOVOLOG FLEXPEN-MODERATE RESISTANCE 1 UNITS SC (08:04)
--- NOTE | 2025-03-17 09:45 | W.PN.CD ---
Today's Communication / Plan
-
discharge planning on Plavix/Xarelto
Impression / Plan
-
69 yo female with PMH of CAD, hyperlipidemia admitted s/p PCI.
# CAD s/p complex LAD PCI 03/16.
-discussed with interventional cardiology: plan is Plavix and low dose Xarelto going forward
# Hyperlipidemia
-cont statin
# Dispo
-discharge planning
Physical Exam
Vital Signs/Labs
Vital Signs
Temp Pulse Resp BP Pulse Ox
97.8 F 55 16 115/41 98
03/17/25 07:17 03/17/25 07:18 03/17/25 07:17 03/17/25 07:18 03/17/25 08:00
03/16/25 03/17/25 03/18/25
06:59 06:59 06:59
Actual Weight 64.41 kg
03/17/25 04:08
03/17/25 04:08
Triglycerides 159 mg/dl (10-149) H 03/17/25 04:08
LDL Cholesterol, Calc 99 mg/dl 03/17/25 04:08
VLDL Cholesterol, Calc 31 mg/dl (0-30) H 03/17/25 04:08
HDL Cholesterol 46 mg/dl 03/17/25 04:08
Physical Exam
Constitutional: No acute distress and Comfortable
EENT: Moist mucous membranes
Cardiovascular: Rhythm & rate is regular, Pedal edema is absent, JVD pressure is normal and Systolic murmur absent
Respiratory: Respiratory effort normal and Lungs clear to auscul.
Neuro/Psych: AO x 3
Data Reviewed
-
Date of Service: March 17, 2025
EKG: Other (Tele: SR 60s)
Labs: Labs Reviewed by me
--- NOTE | 2025-03-17 10:47 | W.DS.TRANS ---
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
-
Discharge Instructions:
Discharge Diagnosis/Procedures Angioplasty and stent x2 to Left Anterior
Descending artery
Diet Low Cholesterol,Diabetic, Carb Controlled
Driving Restrictions No driving for 24 hours
Other Services Cardiac Rehab
Instructions:
Stand-Alone Forms: DC Instructions- Cath/EP Lab
Return to Work
Changes to Home Medications: Yes
Discharge Medications:
DC Medications w/original date entered in [employer]
hydroxyzine HCl 25 mg tablet 25 mg PO HSPRN PRN Hives,Itching 01/02/14
levothyroxine 100 mcg tablet 100 mcg PO DAILY 01/02/14
calcium carbonate 1,000 mg PO DAILYPRN PRN indigestion 01/21/25
glimepiride 4 mg tablet 4 mg PO BID 01/21/25
metformin 500 mg tablet,extended release 24 hr 500 mg PO TID 01/21/25
metoprolol tartrate 50 mg tablet 50 mg PO BID 01/21/25
pravastatin 10 mg tablet 10 mg PO QPM 01/21/25
rivaroxaban 2.5 mg tablet (Xarelto) 2.5 mg PO BID 01/21/25
semaglutide 1 mg/dose (4 mg/3 mL) subcutaneous pen injector (Ozempic) 1 mg SC FR 01/21/25
furosemide 20 mg tablet 20 mg PO DAILY #30 tabs 01/28/25
acetaminophen 500 mg capsule 1,000 mg PO Q6HPRN PRN pain 02/17/25
clopidogrel 75 mg tablet 75 mg PO DAILY #30 tabs 03/03/25
pantoprazole 40 mg tablet,delayed release (Protonix) 40 mg PO DAILY #30 tabs 03/03/25
Home Medication Changes
STOP: aspirin
Pending Results: No
[2025-03-17 11:04] VITALS: BP 103/45
--- NOTE | 2025-03-17 11:09 | PTCARENOTE ---
Pt received this am with no c/o of any chest pain or sob. OOB ad hermes in the room. Room air sat 98%. Right rad dressing dry and intact, site WNL.
--- NOTE | 2025-03-17 11:57 | PTCARENOTE ---
Pt discharged to home with a friend. Discharge instructions given and reviewed with good understanding and all questions answered.
[2025-03-18 08:23] LABS: ACT-LR - POC 294 Seconds (116-155)
[2025-03-18 08:23] LABS: ACT-LR - POC 297 Seconds (116-155)
[2025-03-18 08:35] LABS: ACT-LR - POC > 397 Seconds (116-155)
== END 2025-03-17 12:08 | disposition home or self-care (01) ==
LOC: CATH 08:54
PROVIDERS: Nurse Practitioner; ATTENDING PHYSICIAN Internal Medicine Cardiovascular Disease; FAMILY PHYSICIAN Family Medicine; OTHER PHYSICIAN Internal Medicine Cardiovascular Disease
DX: I25.10 Atherosclerotic heart disease of native coronary artery without angina pectoris (principal); E03.9 Hypothyroidism, unspecified; E11.51 Type 2 diabetes mellitus with diabetic peripheral angiopathy without gangrene; E78.5 Hyperlipidemia, unspecified; I10 Essential (primary) hypertension; I44.0 Atrioventricular block, first degree; I65.21 Occlusion and stenosis of right carotid artery; K21.9 Gastro-esophageal reflux disease without esophagitis; Z79.01 Long term (current) use of anticoagulants; Z79.82 Long term (current) use of aspirin; Z79.84 Long term (current) use of oral hypoglycemic drugs; Z79.890 Hormone replacement therapy; Z79.02 Long term (current) use of antithrombotics/antiplatelets; Z79.899 Other long term (current) drug therapy; Z87.891 Personal history of nicotine dependence; Z82.49 Family history of ischemic heart disease and other diseases of the circulatory system; Z88.1 Allergy status to other antibiotic agents; Z88.2 Allergy status to sulfonamides; Z88.0 Allergy status to penicillin; Z88.8 Allergy status to other drugs, medicaments and biological substances
CPT/HCPCS: 92978; 92972; 99152; 99153; C1761; 80048; 80061; 82962; 85027; 85347; 92921; 93005; C1725; C1753; C1769; C1874; C1894; C9600; Q9967